=== PATIENT | male | born 1995 | race African-American/Black ===

== ENCOUNTER 2018-09-29 15:32 | Emergency (ER) | payer OTHER ==
[~2018-09-29] VITALS: Ht 180.3 cm; Wt 127.0 kg
[~2018-09-29 15:32] MED LIST: ACCUNEB SO1.25 MG/1; AFRIN120 MG; FLOVENT HFA 1110 MCG IH; MEDROL DOSPAK21 TAB PO
[2018-09-29] MEDS ORDERED: PREDNISONE 20 M20 MG PO (16:26)
[2018-09-29 16:50] VITALS: BP 142/71
== END 2018-09-29 18:51 | disposition home or self-care (01) ==
LOC: ER 15:32
DX: J45.901 Unspecified asthma with (acute) exacerbation (principal); Z88.0 Allergy status to penicillin

== ENCOUNTER 2019-01-08 18:47 | Emergency (ER) | payer OTHER ==
[~2019-01-08] VITALS: Ht 182.9 cm; Wt 105.7 kg
[~2019-01-08 18:47] MED LIST changes: +PREDNISONE 20 M20 MG PO
[2019-01-08] MEDS ORDERED: GOLYTELY4000 M1 PO (21:22)
[2019-01-08 21:32] VITALS: BP 133/77
== END 2019-01-08 21:32 | disposition home or self-care (01) ==
LOC: ER 18:47
DX: K59.00 Constipation, unspecified (principal); J45.909 Unspecified asthma, uncomplicated; Z88.0 Allergy status to penicillin